=== PATIENT | female | born 1990 | race Caucasian/White ===

== ENCOUNTER 2022-02-11 17:14 | Outpatient (CLI) | payer OTHER | END 2022-02-11 18:53 | disposition home or self-care (01) | LOC: GENOP 17:14 | DX: O36.8120 Decreased fetal movements, second trimester, not applicable or unspecified (principal); O24.112 Pre-existing type 2 diabetes mellitus, in pregnancy, second trimester; Z79.4 Long term (current) use of insulin; Z3A.20 20 weeks gestation of pregnancy | CPT/HCPCS: 81001; G0463 ==

== ENCOUNTER 2022-05-31 00:14 | Outpatient (CLI) | payer OTHER ==
[~2022-05-31] VITALS: Ht 157.5 cm; Wt 98.0 kg
[2022-05-31 02:33] LABS: HEMOGLOBIN 11.7 gm/dl (12.3-15.3); RED BLOOD COUNT 4.26 M/UL (4.00-5.10); WHITE BLOOD COUNT 15.8 K/UL (4.5-11.0)
[2022-05-31 02:54] LABS: BUN/CREATININE RATIO 20 (0-10)
== END 2022-05-31 04:07 | disposition home or self-care (01) ==
LOC: GENOP 00:14
PROVIDERS: Obstetrics & Gynecology
DX: O47.03 False labor before 37 completed weeks of gestation, third trimester (principal); Z3A.36 36 weeks gestation of pregnancy; O42.913 Preterm premature rupture of membranes, unspecified as to length of time between rupture and onset of labor, third trimester
CPT/HCPCS: 36415; 80053; 81001; 82570; 84112; 84156; 85025; 96360; 96374; J0360